=== PATIENT | female | born 1960 | race Caucasian/White ===

== ENCOUNTER 2019-12-10 08:15 | Day surgery (SDC) | payer BC ==
[~2019-12-10 08:15] MED LIST: Lactated Ringers 1,000 ML IV SCH
[2019-12-10] MEDS ORDERED: fentaNYL 100 MCG/2 ML SDV ONE (09:15)
[2019-12-10] MEDS ORDERED: Propofol 200 MG/20 ML SDV ONE ×2 (09:15→11:16)
--- NOTE | 2019-12-10 14:49 | OR ---
PRE-OPERATIVE DIAGNOSIS: Positive family history of colon cancer in mother. She was diagnosed in her early 70s and did from colon cancer. The patient's last colonoscopy was about 5 years ago. POST-OPERATIVE DIAGNOSES: 1. Three tiny polyps removed using cold forceps. a. 2 mm cecal polyp. b. 2 mm at 35 cm. c. 2 mm rectal. 2. Mild diverticulosis. PROCEDURE: Colonoscopy with polypectomy x3 using cold forceps. ANESTHESIA: Monitored anesthesia care. BOWEL PREP: Good. DESCRIPTION OF PROCEDURE: Ciara is a 59-year-old female who was brought to the endoscopy suite after discussing risks and benefits of the procedure. Informed consent was obtained for conscious sedation and colonoscopy with or without biopsy and/or polypectomy. We also discussed possibility of missed lesions. Pre-procedure exam was unremarkable. IV, oxygen, and monitors were placed. The patient was placed in the left lateral decubitus position. Sedation was administered and a digital rectal exam was performed and unremarkable. Colonoscope was passed into the rectum and slowly advanced all the way to the cecum. Cecum was viewed and photographed. There was a 2 mm cecal polyp removed with cold forceps. The colonoscope was slowly withdrawn and the mucosa was closed observed in a direct circumferential manner. The patient did have some mild scattered diverticulosis throughout the colon. Otherwise, the ascending colon unremarkable. Transverse colon unremarkable. Descending colon unremarkable. Sigmoid colon revealed 2 mm polyp at 35 cm, removed with cold forceps. Rectal mucosa also revealed a 2 mm polyp removed with cold forceps. Retroflexion was performed and rectal mucosa was otherwise unremarkable. Scope was removed. The patient tolerated the procedure well. The patient was monitored until that baseline status. Discharge instructions were reviewed and the patient was discharged in good condition. COMPLICATIONS: None. TOTAL TIME: 22 minutes. ESTIMATED BLOOD LOSS: Less than 1 mL. RECOMMENDATIONS/FOLLOWUP: We will await results of path report to determine ideal followup interval. We will have the patient hold her aspirin for 3 days to limit any chance of bleeding. I would like to kindly thank Marybeth Griffin for this referral. DMB: 12/10/2019 13:05:02 MODL: 12/10/2019 14:40:19 /[id number]
== END 2019-12-10 12:40 | disposition home or self-care (01) ==
LOC: VM.SDS 08:15
PROVIDERS: ATTEND Family Medicine
DX: Z12.11 Encounter for screening for malignant neoplasm of colon (principal); D12.0 Benign neoplasm of cecum; D12.5 Benign neoplasm of sigmoid colon; K62.1 Rectal polyp; K57.30 Diverticulosis of large intestine without perforation or abscess without bleeding; I12.9 Hypertensive chronic kidney disease with stage 1 through stage 4 chronic kidney disease, or unspecified chronic kidney disease; N18.3 Chronic kidney disease, stage 3 (moderate); E78.5 Hyperlipidemia, unspecified; G89.29 Other chronic pain; M25.562 Pain in left knee; E66.01 Morbid (severe) obesity due to excess calories; Z68.42 Body mass index [BMI] 45.0-49.9, adult; Z79.82 Long term (current) use of aspirin; Z79.899 Other long term (current) drug therapy; Z80.0 Family history of malignant neoplasm of digestive organs
CPT/HCPCS: J2704; J3010; J7120

== ENCOUNTER 2025-07-08 10:37 | Day surgery (SDC) | payer OTHER ==
[~2025-07-08 10:37] MED LIST changes: +Propofol 200 MG/20 ML SDV ONE; +fentaNYL 100 MCG/2 ML SDV ONE
[2025-07-08] MEDS: Lactated Ringers 1,000 ML IV SCH (10:50)
[2025-07-08 13:33] VITALS: BP 118/74; PULSE 60
== END 2025-07-08 14:00 | disposition home or self-care (01) ==
LOC: VM.SDS 10:37
PROVIDERS: ATTEND Family Medicine
DX: Z12.11 Encounter for screening for malignant neoplasm of colon (principal); D12.2 Benign neoplasm of ascending colon; D12.3 Benign neoplasm of transverse colon; D12.4 Benign neoplasm of descending colon; K57.30 Diverticulosis of large intestine without perforation or abscess without bleeding; I12.9 Hypertensive chronic kidney disease with stage 1 through stage 4 chronic kidney disease, or unspecified chronic kidney disease; N18.31 Chronic kidney disease, stage 3a; E66.813 Obesity, class 3; Z80.0 Family history of malignant neoplasm of digestive organs; Z86.0101 Personal history of adenomatous and serrated colon polyps; Z79.899 Other long term (current) drug therapy
CPT/HCPCS: 00811; J2704; J3010; J7120